=== PATIENT | male | born 1960 | race African-American/Black ===

== ENCOUNTER 2024-01-09 07:26 | Emergency (ER) | payer MEDICAID ==
[~2024-01-09] VITALS: Ht 188 cm; Wt 118.0 kg
[2024-01-09 07:33] VITALS: O2SAT 98
[2024-01-09 08:07] LABS: CHLORIDE 106 mEq/L (98-107); POTASSIUM 3.5 mEq/L (3.5-5.1); SODIUM 137 mEq/L (136-145)
[2024-01-09 08:08] LABS: CALCIUM 6.3 mg/dL (8.7-10.4); CARBON DIOXIDE 24 mEq/L (21-32)
[2024-01-09 08:13] LABS: CREATININE 1.5 mg/dL (0.6-1.3); GLUCOSE 119 mg/dL (70-105); UREA NITROGEN BLOOD 29 mg/dL (9-23)
[2024-01-09 08:15] LABS: ALANINE AMINOTRANSFERASE 58 IU/L (10-49); ALBUMIN 4.6 g/dL (3.2-4.8); ASPARTATE AMINOTRANSFERASE 81 IU/L (<34); BILIRUBIN DIRECT 0.4 mg/dL (<=3.0); BILIRUBIN TOTAL 0.9 mg/dL (0.1-1.0); PROTEIN TOTAL 7.4 g/dL (6.0-8.3)
[2024-01-09 08:23] LABS: BASOPHILS % 0.1 % (0.0-2.0); EOSINOPHILS % 0.6 % (0.0-5.0); HEMATOCRIT. 40.7 % (42.0-52.0); HEMOGLOBIN. 13.9 g/dL (14.0-18.0); LYMPHOCYTES % 16.3 % (20.0-50.0); MEAN CORPUSCULAR HEMOGLOBIN 30.7 pg (28.0-32.0); MEAN CORPUSCULAR HGB CONC 34.1 g/dL (31.0-37.0); MEAN CORPUSCULAR VOLUME 89.9 fL (80.0-94.0); MEAN PLATELET VOLUME 8.8 fl (7.4-10.4); MONOCYTES % 8.2 % (2.0-8.0); NEUTROPHILS % 74.8 % (40.0-76.0); PLATELET 203 x1000/uL (130-400); RED BLOOD CELL COUNT 4.53 mill/uL (4.7-6.1)
[2024-01-09] MEDS: MAGNESIUM/ALUMINUM HYDROXIDE/SIMETHICONE 30ML UDC PO STA (08:29)
[2024-01-09] MEDS: DICYCLOMINE 10 MG/5 ML ORAL SYR PO STA (08:33)
[2024-01-09] MEDS ORDERED: OMEP40CA20 MT (10:06)
[2024-01-09] MEDS: MORPHINE SULFATE 4 MG/ML INJ (FOR IV/IM USE) IM ONE (10:52)
[2024-01-09] MEDS ORDERED: DOCU-138 MT (11:04)
[2024-01-09 11:40] LABS: CLARITY URINE TURBID (CLEAR); COLOR URINE YELLOW (YELLOW); GLUCOSE URINE NEGATIVE (NEGATIVE); KETONES URINE NEGATIVE (NEGATIVE); LEUKOCYTE ESTERASE URINE NEGATIVE (NEGATIVE); NITRITE URINE NEGATIVE (NEGATIVE); OCCULT BLOOD URINE 2+ (NEGATIVE); PH URINE 5.5 (4.5-8.0); PROTEIN URINE 2+ (NEGATIVE); SPECIFIC GRAVITY URINE 1.024 (1.005-1.030)
[2024-01-09 11:50] LABS: BACTERIA URINE NONE SEEN; RBC URINE 0-2 /hpf (0-2); SQUAMOUS EPITHELIAL CELL URINE 1+ /lpf (RARE/1+); URIC ACID CRYSTALS URINE 3+ /lpf; WBC URINE 0-2 /hpf (0-2); YEAST URINE NONE SEEN
[2024-01-09 13:14] VITALS: BP 130/68; PULSE 78; RESP 16; TEMP 36.44736; O2SAT 99
== END 2024-01-09 13:15 | disposition home or self-care (01) ==
LOC: ER 07:35
DX: R10.33 Periumbilical pain (principal); J44.9 Chronic obstructive pulmonary disease, unspecified; Z79.899 Other long term (current) drug therapy; Z86.73 Personal history of transient ischemic attack (TIA), and cerebral infarction without residual deficits
CPT/HCPCS: 80076; 80048; 81003; 83690; 85025; 36415; 74176; 96372; 99285; J2270; Z7610 ×2